=== PATIENT | female | born 1985 ===

== ENCOUNTER 2021-12-03 06:33 | Day surgery (SDC) | payer OTHER ==
[~2021-12-03] VITALS: Ht 188 cm; Wt 85.3 kg
[~2021-12-03 06:33] MED LIST: ALLERGY RELIE15.8 ML NASAL
== END 2021-12-03 13:40 | disposition home or self-care (01) ==
LOC: CIR.AMB 06:33
PROVIDERS: ATTEND Orthopaedic Surgery Hand Surgery
DX: M67.432 Ganglion, left wrist (principal); Z20.822 Contact with and (suspected) exposure to COVID-19; Z88.0 Allergy status to penicillin; E78.5 Hyperlipidemia, unspecified; Z86.16 Personal history of COVID-19

== ENCOUNTER → 2024-11-16 | Day surgery (SDC) | payer OTHER ==
[~2024-11-16] MED LIST changes: +DIPHENHYDRAMINE HCL 50 MG/ML VIAL 1ML IV ONE; +MIDAZOLAM HCL 2 MG/2 ML VIAL IV ONE; +ONDANSETRON HCL 2 MG/ML VIAL IV ONE; +fentaNYL CITRATE 50 MCG/ML AMPUL IV PUSH ONE
== END | disposition home or self-care (01) ==
LOC: CIR.AMB 07:00
PROVIDERS: ATTEND Colon & Rectal Surgery
DX: D12.0 Benign neoplasm of cecum (principal); D12.5 Benign neoplasm of sigmoid colon; K63.5 Polyp of colon; K62.5 Hemorrhage of anus and rectum; K64.8 Other hemorrhoids; Z12.11 Encounter for screening for malignant neoplasm of colon; K57.30 Diverticulosis of large intestine without perforation or abscess without bleeding; Z88.0 Allergy status to penicillin